=== PATIENT | male | born 1965 | race Caucasian/White ===

== ENCOUNTER 2016-06-03 18:06 | Emergency (ER) | payer MEDICARE, MEDICAID ==
[~2016-06-03] VITALS: Ht 172.7 cm; Wt 64.4 kg
[~2016-06-03 18:06] MED LIST: BACTRIM-DS1 EA ORAL; GABAPENTIN600 MG ORAL; GEODON20 MG ORAL; HYDROXYZINE HCL50 M1 PO; KLONOPIN1 MG ORAL; LAMICTAL100 MG ORAL; NASONEX17 GM NASAL; PROAIR HFA8.5 GM INH; PROPRANOLOL HCL10 MG ORAL; SAPHRIS5 MG SL; SEROSTIM6 M1 SQ; TAMSULOSIN HCL0.4 MG ORAL; TOPIRAMATE25 MG ORAL; VITAMIN B-12500 MCG ORAL; WELLBUTRIN SR100 MG ORAL
[2016-06-03] MEDS ORDERED: CIALIS10 MG ORAL (18:25)
[2016-06-03 18:35] VITALS: BP 129/79
[2016-06-03 20:03] LABS: BASOPHILS % (AUTO) 0.8 % (0.0-2.0); EOSINOPHILS % (AUTO) 1.1 % (0.0-3.0); MEAN CORPUSCULAR HEMOGLOBIN 30.4 PG (27.0-31.0); MEAN CORPUSCULAR HGB CONC 32.5 G/DL (32.0-36.0); MEAN CORPUSCULAR VOLUME 93 FL (80-99); MONOCYTES % (AUTO) 13.2 % (1.0-10.0); NEUTROPHILS % (AUTO) 66.9 % (45.0-75.0); PLATELET COUNT 160 K/UL (150-450); RED CELL DISTRIBUTION WIDTH 11.9 % (11.6-14.8); WHITE BLOOD COUNT 6.8 K/UL (4.8-10.8)
--- NOTE | 2016-06-03 20:04 | Emergency Room Report ---
History of Present Illness General Chief Complaint: Abdominal Pain Source: Patient Present Illness HPI The patient was started on new HIV medicines 2 weeks ago (Tivicay). He was taking it twice a day instead of just once daily. He started having lower abdominal pain associated with that. He felt it might be related to medication. When he discussed this his private doctor's PA, he was told he was taking the med inappropriately and only needed to take once a day. He stopped taking it for several days. He started taking it again a few days ago. He had severe lower abdominal pain associated with that yesterday - crying and position. He also was constipated. He took fleets enema and that which helped him and by moving a large bowel movement without blood. He's been passing gas and also burping. The pain persists in his lower abdomen but is somewhat better after moving his bowels. Also taking Prescobix. His urine was darker today and this concerned him. The patient was seen by his doctor's PA today and advised to come to the emergency department. Blood was drawn. No fever, URI, sore throat, productive cough. Some rash upper chest (he feels might be related to taking Bactrim). Patient is bipolar disorder. He is anxious. No SI or HI. No joint pain. Allergies: Coded Allergies: No Known Allergies (Unverified , 06/03/16) Patient History Past Medical History: see triage record Social History: Reports: smoking Social History Narrative with friend Reviewed Nursing Documentation: PMH: Agreed, PSxH: Agreed Nursing Documentation-PMH History Of Psychiatric Problem: Yes - Bipolar I Review of Systems All Other Systems: negative except mentioned in HPI Physical Exam Vital Signs Date Time Temp Pulse Resp B/P Pulse Ox O2 Delivery O2 Flow Rate FiO2 06/03/16 18:14 97.9 94 16 127/77 100 Room Air Sp02 EP Interpretation: reviewed, normal General Appearance: well appearing, no apparent distress, GCS 15 Head: normocephalic Eyes: bilateral eye PERRL, bilateral eye normal inspection ENT: moist mucus membranes Neck: supple Respiratory: chest non-tender, lungs clear, normal breath sounds, other - pes escavatum Cardiovascular #1: regular rate, rhythm Cardiovascular #2: 2+ radial (R) Gastrointestinal: normal inspection, normal bowel sounds, non tender, no mass, non-distended Musculoskeletal: back normal, gait/station normal, normal range of motion Neurologic: alert, oriented x3, grossly normal Psychiatric: anxious Skin: warm/dry, other - fine morbiliform rash upper chest extend to lower neck Medical Decision Making Diagnostic Impression: Primary Impression: Abdominal pain Qualified Codes: R10.30 - Lower abdominal pain, unspecified Additional Impressions: Constipation Qualified Codes: K59.03 - Drug induced constipation Adverse reaction to medication HIV (human immunodeficiency virus infection) H/O bipolar disorder ER Course Patient presents with lower abdominal pain that began with taking excessive amount of antivirals. It's been fluctuating with taking the medication. Very complicated patient that's immune compromised. The pain is somewhat better from yesterday. This requires a fairly extensive evaluation with labs, urinalysis and x-ray. The patient be treated with IV hydration. Differential includes constipation, diverticulitis, protazoal infection, adverse reaction to medication, electrolyte imbalance. Labs significant for normal WBC and slightly elevated creatinine. Xray of abd with significant stool. No obstruction. Patient somewhat improved with treatment. Still concerned and feels like he needs to move bowels. Discussed treatment plan with lactulose and tylenol. Discussed with patient's PMD. Patient stable for outpatient observation and treatment. Laboratory Tests Test 06/03/16 19:22 White Blood Count 6.8 K/UL (4.8-10.8) Red Blood Count 4.00 M/UL (4.70-6.10) L Hemoglobin 12.2 G/DL (14.2-18.0) L Hematocrit 37.4 % (42.0-52.0) L Mean Corpuscular Volume 93 FL (80-99) Mean Corpuscular Hemoglobin 30.4 PG (27.0-31.0) Mean Corpuscular Hemoglobin Concent 32.5 G/DL (32.0-36.0) Red Cell Distribution Width 11.9 % (11.6-14.8) Platelet Count 160 K/UL (150-450) Mean Platelet Volume 6.0 FL (6.5-10.1) L Neutrophils (%) (Auto) 66.9 % (45.0-75.0) Lymphocytes (%) (Auto) 18.0 % (20.0-45.0) L Monocytes (%) (Auto) 13.2 % (1.0-10.0) H Eosinophils (%) (Auto) 1.1 % (0.0-3.0) Basophils (%) (Auto) 0.8 % (0.0-2.0) Prothrombin Time 9.9 SEC (9.30-11.50) Prothrombin Time INR 1.0 (0.9-1.1) PTT 28 SEC (23-33) Urine Color Pale yellow Urine Appearance Slightly cloudy Urine pH 7 (4.5-8.0) Urine Specific [place] 1.010 (1.005-1.035) Urine Protein Negative (NEGATIVE) Urine Glucose (UA) Negative (NEGATIVE) Urine Ketones Negative (NEGATIVE) Urine Occult Blood Negative (NEGATIVE) Urine Nitrite Negative (NEGATIVE) Urine Bilirubin Negative (NEGATIVE) Urine Urobilinogen Normal MG/DL (0.0-1.0) Urine Leukocyte Esterase 1+ (NEGATIVE) H Urine RBC 0-2 /HPF (0 - 0) H Urine WBC 2-4 /HPF (0 - 0) Urine Squamous Epithelial Cells None /LPF (NONE/OCC) Urine Bacteria Many /HPF (NONE) H Sodium Level 140 mEQ/L (135-145) Potassium Level 3.9 mEQ/L (3.4-4.9) Chloride Level 99 mEQ/L (98-107) Carbon Dioxide Level 26 mEQ/L (20-30) Anion Gap 15 (5-15) Blood Urea Nitrogen 23 mg/dL (7-23) Creatinine 1.3 mg/dL (0.7-1.2) H Estimate Glomerular Filtration Rate 58.4 mL/min (>60) Glucose Level 115 mg/dL (74-106) H Calcium Level 9.4 mg/dL (8.6-10.2) Total Bilirubin < 0.2 mg/dL (0.0-1.2) Aspartate Amino Transferase (AST) 16 U/L (5-40) Alanine Aminotransferase (ALT) 16 U/L (3-41) Alkaline Phosphatase 44 U/L (40-129) Total Creatine Kinase 54 U/L (38-174) Total Protein 7.3 g/dL (6.6-8.7) Albumin 3.7 g/dL (3.5-5.2) Globulin 3.6 g/dL Albumin/Globulin Ratio 1.0 (1.0-2.7) Lipase 39 U/L (< 60) Other X-Ray Diagnostic Results Other X-Ray Diagnostic Results : X-Ray Ordered: abd EP Interpretation: Yes Findings: other - stool, no SBO, no masses Number of Views: 1 Last Vital Signs Date Time Temp Pulse Resp B/P Pulse Ox O2 Delivery O2 Flow Rate FiO2 06/03/16 22:06 97.9 92 16 129/79 100 Room Air Status: improved Disposition: HOME, SELF-CARE Condition: Improved Scripts Acetaminophen (Tylenol) 325 Mg Tablet 650 MG ORAL Q6H Y for Prn Pain/Headache/Temp > 101, #20 TAB 0 Refills Prov: Daniel Helton M.D. 06/03/16 Lactulose (LACTULOSE*) 20 Gm/30 Ml Solution 30 ML ORAL BID Y for Constipation, #240 ML 1 Refill Prov: Daniel Helton M.D. 06/03/16 Referrals: NON PHYSICIAN (PCP) Daniel Helton M.D. Jun 03, 2016 20:04
[2016-06-03 20:13] LABS: APPEARANCE,URINE SLIGHTLY CLOUDY; KETONES,URINE NEGATIVE (NEGATIVE); LEUKOCYTE ESTERASE ,URINE 1+ (NEGATIVE); NITRITE,URINE NEGATIVE (NEGATIVE); PH,URINE 7 (4.5-8.0); PROTEIN,URINE NEGATIVE (NEGATIVE); UROBILINOGEN,URINE NORMAL MG/DL (0.0-1.0)
[2016-06-03 20:17] LABS: ALANINE AMINOTRANSFERASE 16 U/L (3-41); ANION GAP 15 (5-15); ASPARTATE AMINO TRANSFERASE 16 U/L (5-40); CALCIUM 9.4 mg/dL (8.6-10.2); CARBON DIOXIDE 26 mEQ/L (20-30); CHLORIDE 99 mEQ/L (98-107); CREATININE 1.3 mg/dL (0.7-1.2); GLOMERULAR FILTRATION RATE 58.4 mL/min (>60); HEMOLYSIS 6; LIPASE 39 U/L (< 60); POTASSIUM 3.9 mEQ/L (3.4-4.9); SODIUM 140 mEQ/L (135-145); TOTAL PROTEIN 7.3 g/dL (6.6-8.7)
[2016-06-03 20:23] LABS: RBC,URINE 0-2 /HPF (0 - 0)
[2016-06-03 20:24] LABS: BACTERIA,URINE MANY /HPF
[2016-06-03 20:25] LABS: PROTHROMBIN TIME 9.9 SEC (9.30-11.50)
[2016-06-03] MEDS ORDERED: GEODON40 MG ORAL (20:29)
[2016-06-03] MEDS ORDERED: TIVICAY50 MG ORAL (20:29)
[2016-06-03] MEDS ORDERED: IBUPROFEN600 MG ORAL (20:29)
[2016-06-03] MEDS ORDERED: TOPIRAMATE25 MG ORAL (20:29)
[2016-06-03] MEDS ORDERED: BUPROPION XL300 MG ORAL (20:29)
[2016-06-03] MEDS ORDERED: PREZCOBIX 8001 EACH PO (20:29)
[2016-06-03] MEDS ORDERED: TYLENOL325 MG ORAL (21:27)
[2016-06-03] MEDS ORDERED: LACTULOSE20 GM/301 ORAL (21:27)
[2016-06-03 22:06] VITALS: BP 125/75
--- NOTE | 2016-06-04 10:10 | Diagnostic Imaging Report ---
Indication: Abdominal pain Technique: Supine views of the abdomen Comparison: None Findings: Bowel gas pattern is nonobstructive and nonspecific. Moderate colonic stool is noted. There is a left hip arthroplasty. Impression: Nonobstructive and nonspecific bowel gas pattern. Moderate colonic stool.
== END 2016-06-03 22:07 | disposition home or self-care (01) ==
LOC: EMR 19:30
DX: K59.03 Drug induced constipation (principal); F31.9 Bipolar disorder, unspecified; F17.200 Nicotine dependence, unspecified, uncomplicated
CPT/HCPCS: 36415; 74000; 80053; 81003; 82550; 83690; 85025; 85610; 85730; 87086; 96374

== ENCOUNTER 2017-01-26 07:46 | Emergency (ER) | payer MEDICARE, MEDICAID ==
[~2017-01-26] VITALS: Ht 172.7 cm; Wt 72.6 kg
[~2017-01-26 07:46] MED LIST changes: +BUPROPION XL300 MG ORAL; +CIALIS10 MG ORAL; +GEODON40 MG ORAL; +IBUPROFEN600 MG ORAL; +LACTULOSE20 GM/301 ORAL; +PREZCOBIX 8001 EACH PO; +TIVICAY50 MG ORAL; +TYLENOL325 MG ORAL
[2017-01-26 08:23] VITALS: BP 146/98
[2017-01-26] MEDS ORDERED: Solu-MEDROL 125mg Inj IVP ONE (08:30)
--- NOTE | 2017-01-26 08:40 | Emergency Room Report ---
History of Present Illness General Chief Complaint: Pain Source: Patient, Medical Record Present Illness HPI Patient presents with complaints of rash He also complained of pain to the lower buttock area bilaterally, with radiation to both hamstrings coming across to the right lateral knee The pain in the back is exacerbated with standing up and improves with rest Denies any fall or trauma He feels that his hamstrings feel tight Patient also complains of a nonspecific rash Started 2 days ago Upper trunk Mainly the upper chest area also seeing evidence on both arms Patient reports being on new HIV medications since 9 days ago he was having a high viral count Denies any fevers denies any neck pain denies any chest pain or shortness of breath Patient reports that he felt like he was getting jose infection around the mouth and tongue area He reports changing his diet to a low sugar and carbohydrate , Allergies: Coded Allergies: ATOVAQUONE (Verified Allergy, Unknown, 01/26/17) DAPSONE (Verified Allergy, Unknown, 01/26/17) RITONAVIR (Verified Allergy, Unknown, 01/26/17) Patient History Past Medical History: see triage record Pertinent Family History: none Reviewed Nursing Documentation: PMH: Agreed, PSxH: Agreed Nursing Documentation-PMH Past Medical History: No History, Except For Review of Systems All Other Systems: negative except mentioned in HPI Physical Exam Vital Signs Date Time Temp Pulse Resp B/P (MAP) Pulse Ox O2 Delivery O2 Flow Rate FiO2 01/26/17 07:54 97.5 97 18 146/98 97 Room Air Sp02 EP Interpretation: reviewed, normal General Appearance: well appearing, no apparent distress Head: normocephalic, atraumatic Eyes: bilateral eye PERRL, bilateral eye EOMI ENT: hearing grossly normal, normal pharynx, TMs + canals normal, uvula midline Neck: full range of motion, supple, no meningismus, no bony tend Respiratory: lungs clear, normal breath sounds, no rhonchi, no respiratory distress, no retraction, no accessory muscle use Cardiovascular #1: normal peripheral pulses, regular rate, rhythm, no edema, no gallop, no JVD, no murmur Gastrointestinal: normal bowel sounds, non tender, soft, no mass, no organomegaly, non-distended, no guarding, no hernia, no pulsatile mass, no rebound Genitourinary: no CVA tenderness Musculoskeletal: other - Uncomfortable on palpation of both posterior superior iliac crest region, patient has increased discomfort with hamstring straightening otherwise sensory is intact, 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, Neurologic: oriented x3, responsive, 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, sensory intact Psychiatric: mood/affect normal Skin: warm/dry, palpation normal, other - Patient has nonspecific rash involving the abdomen upper chest, back and upper arm area, there several areas of scab formation, no obvious linear pathology no petechiae, no obvious urticaria, patient also has a localized rash in the right upper cheek, erythematous approximately 1 x 0.5 cm just at the right upper cheek Lymphatic: normal inspection, no adenopathy Medical Decision Making Diagnostic Impression: Primary Impression: Dermatitis Additional Impression: Back pain ER Course Multiple differentials considered At this time blood work appear normal Sedimentation rate was very mildly elevated Had discussion with patient regarding bacteremia/septicemia Patient reports that he is seeing his physician in the next few hours And would like to followup with him Has a post to hospital admission and infectious disease consultation to the hospital I feel the patient is appropriate for this and therefore was discharged for close followup Labs Test 01/26/17 08:25 White Blood Count 7.5 K/UL (4.8-10.8) Red Blood Count 4.96 M/UL (4.70-6.10) Hemoglobin 15.0 G/DL (14.2-18.0) Hematocrit 48.4 % (42.0-52.0) Mean Corpuscular Volume 98 FL (80-99) Mean Corpuscular Hemoglobin 30.2 PG (27.0-31.0) Mean Corpuscular Hemoglobin Concent 31.0 G/DL (32.0-36.0) Red Cell Distribution Width 12.4 % (11.6-14.8) Platelet Count 187 K/UL (150-450) Mean Platelet Volume 6.3 FL (6.5-10.1) Neutrophils (%) (Auto) 51.9 % (45.0-75.0) Lymphocytes (%) (Auto) 32.5 % (20.0-45.0) Monocytes (%) (Auto) 13.1 % (1.0-10.0) Eosinophils (%) (Auto) 1.5 % (0.0-3.0) Basophils (%) (Auto) 1.0 % (0.0-2.0) Erythrocyte Sedimentation Rate 29 MM/HR (0-15) Prothrombin Time 10.5 SEC (9.30-11.50) Prothromb Time International Ratio 1.0 (0.9-1.1) Activated Partial Thromboplast Time 28 SEC (23-33) Sodium Level 139 MMOL/L (136-145) Potassium Level 4.2 MMOL/L (3.5-5.1) Chloride Level 103 MMOL/L (98-107) Carbon Dioxide Level 26 MMOL/L (21-32) Anion Gap 10 mmol/L (5-15) Blood Urea Nitrogen 34 mg/dL (7-18) Creatinine 1.4 MG/DL (0.55-1.30) Estimat Glomerular Filtration Rate 53.6 mL/min (>60) Glucose Level 81 MG/DL (74-106) Lactic Acid Level 0.80 mmol/L (0.66-2.22) Calcium Level 9.7 MG/DL (8.5-10.1) Total Bilirubin 0.4 MG/DL (0.2-1.0) Aspartate Amino Transf (AST/SGOT) 31 U/L (15-37) Alanine Aminotransferase (ALT/SGPT) 32 U/L (12-78) Alkaline Phosphatase 42 U/L (46-116) Total Protein 8.2 G/DL (6.4-8.2) Albumin 4.0 G/DL (3.4-5.0) Globulin 4.2 g/dL Albumin/Globulin Ratio 1.0 (1.0-2.7) Last Vital Signs Date Time Temp Pulse Resp B/P (MAP) Pulse Ox O2 Delivery O2 Flow Rate FiO2 01/26/17 08:23 97.5 82 18 146/98 97 Room Air Status: improved Disposition: HOME, SELF-CARE Condition: Improved Scripts Ranitidine Hcl* (ZANTAC*) 150 Mg Tablet 150 MG ORAL TWICE A DAY, #30 TAB Prov: FIGUEROA PURCELL.OAlana 01/26/17 Diphenhydramine Hcl* (BENADRYL*) 25 Mg Capsule 25 MG ORAL Q6H Y for Itching, #20 CAP Prov: FIGUEROA PURCELL D.O. 01/26/17 Prednisone* (PREDNISONE*) 20 Mg Tablet 20 MG ORAL BID, #8 TAB Prov: FIGUEROA PURCELL D.O. 01/26/17 Referrals: NOT CHOSEN IPA/MD,REFERRING (PCP) Additional Instructions: Patient is provided with the discharge instructions notified to follow up with primary doctor in the next 2-3 days otherwise return to the er with any worsening symptoms. Please note that this report is being documented using DRAGON technology. This can lead to erroneous entry secondary to incorrect interpretation by the dictating instrument. FIGUEROA PURCELL D.O. Jan 26, 2017 08:39
[2017-01-26 09:03] LABS: EOSINOPHILS % (AUTO) 1.5 % (0.0-3.0); LYMPHOCYTES % (AUTO) 32.5 % (20.0-45.0); MEAN CORPUSCULAR HEMOGLOBIN 30.2 PG (27.0-31.0); MEAN CORPUSCULAR VOLUME 98 FL (80-99); MEAN PLATELET VOLUME 6.3 FL (6.5-10.1); MONOCYTES % (AUTO) 13.1 % (1.0-10.0); NEUTROPHILS % (AUTO) 51.9 % (45.0-75.0); PLATELET COUNT 187 K/UL (150-450); RED BLOOD COUNT 4.96 M/UL (4.70-6.10); RED CELL DISTRIBUTION WIDTH 12.4 % (11.6-14.8); WHITE BLOOD COUNT 7.5 K/UL (4.8-10.8)
[2017-01-26 09:11] LABS: PROTHROMBIN TIME 10.5 SEC (9.30-11.50)
[2017-01-26 09:19] LABS: ALANINE AMINOTRANSFERASE 32 U/L (12-78); ANION GAP 10 mmol/L (5-15); ASPARTATE AMINO TRANSFERASE 31 U/L (15-37); CALCIUM 9.7 MG/DL (8.5-10.1); CARBON DIOXIDE 26 MMOL/L (21-32); CHLORIDE 103 MMOL/L (98-107); CREATININE 1.4 MG/DL (0.55-1.30); GLOMERULAR FILTRATION RATE 53.6 mL/min (>60); POTASSIUM 4.2 MMOL/L (3.5-5.1); SODIUM 139 MMOL/L (136-145); TOTAL PROTEIN 8.2 G/DL (6.4-8.2)
[2017-01-26] MEDS ORDERED: PREDNISONE20 MG ORAL (10:38)
[2017-01-26] MEDS ORDERED: BENADRYL25 MG ORAL (10:38)
[2017-01-26] MEDS ORDERED: RANITIDINE HCL150 MG ORAL (10:38)
[2017-01-26 11:02] VITALS: BP 140/89
[2017-01-26 11:03] VITALS: BP 140/89
== END 2017-01-26 11:04 | disposition home or self-care (01) ==
LOC: EMR 08:16
DX: L30.9 Dermatitis, unspecified (principal); M54.9 Dorsalgia, unspecified; Z88.8 Allergy status to other drugs, medicaments and biological substances
CPT/HCPCS: 36415; 80053; 83605; 85025; 85610; 85651; 85730; 87040; 96360; 96374; 99284; J2930